=== PATIENT | female | born 1960 | race Caucasian/White ===

== ENCOUNTER 2024-01-08 13:17 | Emergency (ER) | payer OTHER, SELFPAY ==
[2024-01-08 13:20] VITALS: BP 180/118
[2024-01-08] MEDS: ADACEL 0.5 ML IM (14:53)
[2024-01-08 16:23] VITALS: BP 151/86
[2024-01-08 17:12] VITALS: BP 146/81
--- NOTE | 2024-01-08 19:59 | ED.SKININJ ---
HPI-Injury
General
Chief Complaint: Head Injury
Source: patient
Exam Limitations: none
Time Seen by Provider: 01/08/24 13:45
Nursing documentation reviewed up to this point in time: agreed with
Travel History
Have you had any contact with someone who has COVID-19?: No
Do you have any symptoms of coronavirus? Fever > 100 degrees, chills, cough, shortness of breath, sore throat, loss of taste or smell, muscle aches, or headache?: No
History of Present Illness-Injury
Is this injury a work related problem?: No
Is pt an associate of [facility]?: No
Initial Injury comments:
Patient states she stepped on an unstable board and fell backwards. Hit back of head on a rock. No LOC. Sustained 3 lacerations to occipital scalp. Injury occurred just [employer]
Past History
Past History
ED Past Medical History: None
Review of Systems
Review of Systems
Allergies reviewed?: Yes
All Other Systems: ROS reviewed and negative except as documented in HPI and ROS
Constitutional: Reports no symptoms
EENT: Reports no symptoms
Respiratory: Reports no symptoms
Cardiac: Reports no symptoms
ABD/GI: Reports no symptoms
Musculoskeletal: Reports no symptoms
Skin: Reports other (3 lacerations to occipital scalp)
Neurological: Reports headache
Psychiatric: Reports no symptoms
Skin Exam
Laceration
Occipital scalpl #1:
Length in cm: 4.5
Orientation: horizontal
Type of Laceration: simple
Any active bleeding?: low grade venous oozing
Distal skin color and temperature: normal-warm & good color
Normal distal neurovascular exam: Yes
Range of motion: full
Occipital scalp #2:
Length in cm: 2
Orientation: vertical
Type of Laceration: simple
Any active bleeding?: low grade venous oozing
Distal skin color and temperature: normal-warm & good color
Normal distal neurovascular exam: Yes
Range of motion: full
Occipital scalp #3:
Length in cm: 1
Orientation: vertical
Type of Laceration: simple
Any active bleeding?: no active bleeding
Distal skin color and temperature: normal-warm & good color
Normal distal neurovascular exam: Yes
Range of motion: full
Phy Exam
General Physical Exam
General Presentation: well appearing and no apparent distress
General age: appears stated age
General Skin: warm and dry
General Habitus: normal
General Mental: alert
Eye Exam
Eye Exam: PERRL, EOMI, conjunctiva normal and globe normal
Neurological Exam
Neurological Exam: alert, oriented x3, CN II-XII intact, no motor deficits, no sensory deficits, speech normal and normal gait
[place] Coma Scale
Eye Opening: Spontaneous
Verbal Response: Oriented
Motor Response: Obeys Commands
GCS Total Score: 15
Musculoskeletal Exam
Musculoskeletal Exam: full ROM and neuro vasc intact
Skin Exam
Skin Exam: normal color, warm/dry and no rash
Psychiatric Exam
Psychiatric Exam: normal mood/affect
Course
Orders/Labs/Results
Orders:
Orders
01/08/24 13:58
CT Head W/o Iv Contrast Urgent
Comment:
Reason For Exam: fall, head injury
01/08/24 14:14
Tetanus/Diphth/Acelpertussis [Adacel] 0.5 ml IM .ONCE ONE
01/08/24 14:21
Cervical Spine wo Contrast CT [CT Cervical Spine W/o Iv Contr] Urgent
Comment:
Reason For Exam: trauma
Vital Signs
Initial and Last Documented VS:
Initial Vital Signs
Temp Pulse Resp BP Pulse Ox
97.6 F 110 20 180/118 99
01/08/24 13:20 01/08/24 13:20 01/08/24 13:20 01/08/24 13:20 01/08/24 13:20
Last Documented Vital Signs
Temp Pulse Resp BP Pulse Ox
97.6 F 80 17 146/81 98
01/08/24 13:20 01/08/24 17:12 01/08/24 17:12 01/08/24 17:12 01/08/24 17:12
Procedures
Laceration Closure
scalp laceration #1:
Status of Wound: clean
Description of Wound Edges: sharp
Anesthesia: 1% Lidocaine
Revision/Debridement: routine- no revision
Wound exploration: explored to base- no FB
Type of Closure: single layer closure
Skin Closure Material: skin bradford
Scalp Laceration #2:
Status of Wound: clean
Description of Wound Edges: sharp
Preparation: cleaned with saline and cleaned with Betadine
Anesthesia: 1% Lidocaine with epi
Revision/Debridement: routine- no revision
Wound exploration: explored to base- no FB
Type of Closure: single layer closure
Skin Closure Material: skin bradford
Scalp laceration #3:
Status of Wound: clean
Description of Wound Edges: sharp
Preparation: cleaned with saline
Revision/Debridement: routine- no revision
Wound exploration: explored to base- no FB
Type of Closure: Dermabond-skin glue
*Radiology
Radiology exam reviewed: radiology read reviewed
*Pulse Oximetry
Patient hypoxic: no
*Critical Care Note
Total Time (30-74mins, 75-104mins- exclusive of procedures): Not Applicable
ED Attending Note
-
Portions of this chart may have been created with voice recognition software.� Occasional wrong word or��sound alike� substitutions may have occurred due to the inherent limitations of voice recognition software.
Discharge Plan
Departure
Patient Disposition: Home (Routine Discharge)
Date of Disposition: 01/08/24
Time of Disposition: 16:59
Patient with high blood pressure during this ER visit?: No
Condition: Good
Covid-19: Not Applicable
Discharge Problem:
Head injury
Instructions: Head Injury in Adults (DC), Laceration Repair With Bradford (DC)
Referrals:
NONE,* [Family Provider] -
Activity Restrictions/Additional Instructions:
Bradford can be removed by your family doctor in 7-10 days.
Interventions
Interventions:
*Risk Screen - Suicide Last Done: 01/08/24 13:20
*General Assessment Last Done: 01/08/24 13:20
*Neglect/Abuse Screening Last Done: 01/08/24 13:20
ED- Fall Risk Assessment Last Done: 01/08/24 13:57
*Nursing Disposition Last Done: 01/08/24 17:12
ED- Neurological Assessment Last Done: 01/08/24 13:57
ED-Skin Assessment Last Done: 01/08/24 13:57
Discharge Date and Time
Discharge Date/Time: 01/08/24 17:12
Print Language: ETHIOPIAN
== END 2024-01-08 17:12 | disposition home or self-care (01) ==
LOC: EMR 13:17
PROVIDERS: EMERGENCY PHYSICIAN Emergency Medicine
DX: S09.90XA Unspecified injury of head, initial encounter (principal); S01.81XA Laceration without foreign body of other part of head, initial encounter; W19.XXXA Unspecified fall, initial encounter; Z23 Encounter for immunization
CPT/HCPCS: 99284; 12002; 90471; 70450; 72125; 90715

== ENCOUNTER → 2024-01-10 14:14 | Outpatient (REF) | payer OTHER, SELFPAY | LOC: RAD 14:14 | PROVIDERS: ATTENDING PHYSICIAN Physician Assistant Medical | DX: S09.90XD Unspecified injury of head, subsequent encounter (principal) | CPT/HCPCS: 70450 ==

== ENCOUNTER → 2025-01-17 08:03 | Outpatient (REF) | payer OTHER, SELFPAY | LOC: RAD 08:03 | PROVIDERS: ATTENDING PHYSICIAN Physician Assistant Medical | DX: R19.00 Intra-abdominal and pelvic swelling, mass and lump, unspecified site (principal) | CPT/HCPCS: 76700 ==

== ENCOUNTER → 2025-02-07 09:14 | Outpatient (REF) | payer OTHER, SELFPAY | LOC: RAD 09:14 | PROVIDERS: ATTENDING PHYSICIAN Physician Assistant Medical | DX: R19.00 Intra-abdominal and pelvic swelling, mass and lump, unspecified site (principal) | CPT/HCPCS: 74177; Q9967 ==

== ENCOUNTER → 2025-03-19 12:45 | Outpatient (REF) | payer OTHER, SELFPAY | LOC: RCS 12:45 | PROVIDERS: ATTENDING PHYSICIAN Internal Medicine Cardiovascular Disease; FAMILY PHYSICIAN Physician Assistant Medical | DX: R06.02 Shortness of breath (principal) | CPT/HCPCS: 93306; Q9950 ==